=== PATIENT | female | born 1995 | race Caucasian/White ===

== ENCOUNTER 2018-03-10 19:57 | Emergency (ER) | payer OTHER ==
[2018-03-10 20:14] VITALS: BP 133/86
--- NOTE | 2018-03-10 20:29 | ER Document Report ---
ED Medical Screen (RME) - General Chief Complaint: Back Pain Stated Complaint: SHORTNESS OF BREATH, BACK PAIN, ANXIETY Time Seen by Provider: 03/10/18 20:25 Mode of Arrival: Ambulatory Information source: Patient Notes: Pt presents to the ED with concern for PE. History after of child in January 2014. Feels upper left back pain, SOB for 4 days, no recent trips, no recent surgery. Has been seen at urgent care and [facility] for possible UTI, due to questionable flank pain. History of panic attacks. Not sure if she is having panic attack or PE. No recent trauma, or injury to back. Denies f/v. - Related Data Allergies/Adverse Reactions: No Known Allergies Allergy (Unverified 03/10/18 20:04) Physical Exam - Vital signs Vitals: Temp Pulse Resp BP Pulse Ox 99.0 F 115 H 18 133/86 H 100 03/10/18 20:13 03/10/18 20:13 03/10/18 20:13 03/10/18 20:13 03/10/18 20:13 Course - Vital Signs Vital signs: Temp Pulse Resp BP Pulse Ox 99.0 F 115 H 18 133/86 H 100 03/10/18 20:13 03/10/18 20:13 03/10/18 20:13 03/10/18 20:13 03/10/18 20:13
[2018-03-10 21:11] LABS: ABSOLUTE EOSINOPHILS # (AUTO) 0.1 10^3/uL (0.0-0.6); ABSOLUTE LYMPHOCYTES (AUTO) 1.6 10^3/uL (0.5-4.7); ABSOLUTE MONOCYTES (AUTO) 0.3 10^3/uL (0.1-1.4); ABSOLUTE NEUT (AUTO) 4.8 10^3/uL (1.7-8.2); BASOPHILS % (AUTO) 0.7 % (0-2); HEMATOCRIT 47.6 % (36.0-47.0); HEMOGLOBIN 16.4 g/dL (12.0-15.5); LYMPHOCYTES % (AUTO) 22.8 % (13-45); MEAN CORPUSCULAR HEMOGLOBIN 30.6 pg (27.0-33.4); MEAN CORPUSCULAR HGB CONC 34.5 g/dL (32.0-36.0); MEAN CORPUSCULAR VOLUME 89 fl (80-97); MONOCYTES % (AUTO) 4.3 % (3-13); PLATELET COUNT 347 10^3/uL (150-450); RED BLOOD COUNT 5.36 10^6/uL (3.72-5.28); RED CELL DISTRIBUTION WIDTH 13.2 % (11.5-14.0); SEGMENTED NEUTROPHILS % (AUTO) 70.2 % (42-78); TOTAL CELLS COUNTED % (AUTO) 100 %; WHITE BLOOD COUNT 6.8 10^3/uL (4.0-10.5)
[2018-03-10 21:26] LABS: ALANINE AMINOTRANSFERASE 25 U/L (9-52); ALBUMIN 5.4 g/dL (3.5-5.0); ALKALINE PHOSPHATASE 54 U/L (38-126); ANION GAP 15 (5-19); ASPARTATE AMINO TRANSFERASE 25 U/L (14-36); BILIRUBIN,DIRECT 0.3 mg/dL (0.0-0.4); BILIRUBIN,TOTAL 0.5 mg/dL (0.2-1.3); BLOOD UREA NITROGEN 16 mg/dL (7-20); CALCIUM 10.6 mg/dL (8.4-10.2); CARBON DIOXIDE 27 mmol/L (22-30); CHLORIDE 103 mmol/L (98-107); GLUCOSE 86 mg/dL (75-110); POTASSIUM 4.5 mmol/L (3.6-5.0); SODIUM 145.2 mmol/L (137-145); TOTAL PROTEIN 9.4 g/dL (6.3-8.2)
[2018-03-10] MEDS ORDERED: DIAZEPAM 2 MG TABLET PO ONE (21:51)
--- NOTE | 2018-03-10 22:27 | RADIOLOGY REPORT (SQ) ---
EXAM DESCRIPTION: CTA CHEST COMPLETED DATE/TIME: 03/10/2018 10:17 pm REASON FOR STUDY: history of PE, feels like she has another COMPARISON: None. TECHNIQUE: CT scan of the chest performed using helical scanning technique with dynamic intravenous contrast injection. Images reviewed with lung, soft tissue and bone windows. Reconstructed coronal and sagittal MPR images reviewed. Additional 3 dimensional post-processing performed to develop Maximal Intensity Projection images (AZ P). All images stored on PACS. All CT scanners at this facility use dose modulation, iterative reconstruction, and/or weight based d osing when appropriate to reduce radiation dose to as low as reasonably achievable (ALARA). [facility]: Dose Right [facility]: CareDose [facility]: Dose Right [facility]: Teradose 4D [facility]: [email or web address] CONTRAST TYPE AND DOSE: contrast/concentration: Isovue 370.00 mg/ml; Total Contrast Delivered: 74.0 ml; Total Saline Delivered: 110.0 ml Contrast bolus optimized for the pulmonary arteries. Not diagnostic for the aorta. RENAL FUNCTION: BUN 16; creatinine 1.20 RADIATION DOSE: CT Rad equipment meets quality standard of care and radiation dose reduction techniq ues were employed. CTDIvol: 9.9 - 16.3 mGy. DLP: 694 mGy-cm. . LIMITATIONS: None. FINDINGS: LUNGS AND PLEURA: No masses, infiltrates, or pneumothorax. No pleural effusions or pleura l calcifications. AORTA AND GREAT VESSELS: No aneurysm. Contrast bolus not optimized for the aorta. HEART: No pericardial effusion. No significant coronary artery calcifications. PULMONARY ARTERIES: No emboli visualized in the main pulmonary arteries or the segmental branches. HILAR AND MEDIASTINAL STRUCTURES: No identified masses or abnormal nodes. HARDWARE: None in the chest. UPPER ABDOMEN: Left inferior pole nonobstructing nephrolith. Limited exam. THYROID AND OTHER SOFT TISSUES: No masses. No adenopathy. BONES: No acute or significant finding. 3D MIPS: Confirm above findings. OTHER: No other significant finding. IMPRESSION: NORMAL CTA OF THE CHEST. NO PULMONARY EMBOLI. COMMENT: Quality ID # [id number]: Final reports with documentation of one or more dose reduction techniques (e.g., Automated exposure control, adjustment of the mA and/or kV according to patient size, use of iterative reconstruction technique) TECHNICAL DOCUMENTATION: JOB ID: [id number] [employer]- All Rights Reserved Reading location - IP/workstation name: [email or web address]
--- NOTE | 2018-03-10 23:28 | ER Document Report ---
ED General - General Chief Complaint: Back Pain Stated Complaint: SHORTNESS OF BREATH, BACK PAIN, ANXIETY Time Seen by Provider: 03/10/18 20:25 Mode of Arrival: Ambulatory Information source: Patient Notes: 23 year old female patient presents with complaint of back pain and shortness of breath. Patient with history of anxiety/panic disorder as well as pulmonary embolism. Patient reports that over that last few days she has been doing a lot of repetitive movements and lifting of laundry baskets. Patient got worried when she developed shortness of breath and wanted to be evaluated as this feels similar to when she had a PE a few years ago. Patient denies any chest pain, cough, N/V/D or fevers. - Related Data Allergies/Adverse Reactions: No Known Allergies Allergy (Unverified 03/10/18 20:04) Past Medical History - General Information source: Patient - Social History Smoking Status: Never Smoker Frequency of alcohol use: None Drug Abuse: None Lives with: Friend Family History: Reviewed & Not Pertinent - Past Medical History Cardiac Medical History: Reports: Hx Pulmonary Embolism Psychiatric Medical History: Reports: Hx Anxiety, Other - Panic disorder Past Surgical History: Reports: Hx Thyroid Surgery - Total thyroidectomy 2016 for CA Review of Systems - Review of Systems Constitutional: No symptoms reported EENT: No symptoms reported Cardiovascular: No symptoms reported Respiratory: Short of breath. denies: Cough Gastrointestinal: No symptoms reported Genitourinary: No symptoms reported Female Genitourinary: No symptoms reported Musculoskeletal: Back pain Skin: No symptoms reported Hematologic/Lymphatic: No symptoms reported Neurological/Psychological: No symptoms reported Physical Exam - Vital signs Vitals: Temp Pulse Resp BP Pulse Ox 99.0 F 115 H 18 133/86 H 100 03/10/18 20:13 03/10/18 20:13 03/10/18 20:13 03/10/18 20:13 03/10/18 20:13 - Notes Notes: PHYSICAL EXAMINATION: GENERAL: Well-appearing, well-nourished and in no acute distress. HEAD: Atraumatic, normocephalic. EYES: Pupils equal round and reactive to light, extraocular movements intact, conjunctiva are normal. ENT: Nares patent, oropharynx clear without exudates. Moist mucous membranes. NECK: Normal range of motion, supple without lymphadenopathy LUNGS: Breath sounds clear to auscultation bilaterally and equal. No wheezes rales or rhonchi. HEART: Regular rate and rhythm without murmurs ABDOMEN: Soft, nontender, nondistended abdomen. No guarding, no rebound. No masses appreciated. Female : deferred Musculoskeletal: Normal range of motion, no pitting or edema. No cyanosis. NEUROLOGICAL: Cranial nerves grossly intact. Normal speech, normal gait. Normal sensory, motor exams PSYCH: Normal mood, normal affect. SKIN: Warm, Dry, normal turgor, no rashes or lesions noted. Course - Re-evaluation Re-evalutation: Non-toxic appearing 23 year old female presenting with complaints of shortness of breath and thoracic back pain. Patient concerned she may have a pulmonary embolism. Patient reports that she initially though she may have strained a muscle as she had been carrying laundry baskets several time up and down several flights of stairs, however she started to worry and felt that the pain was similar to when she had a PE in the past. Patient is a non-smoker, does not take any oral BCP, and has not had any recent travel. Patient is not on any anticoagulants. Patient denies ay chest pain. Initial work-up was ordered by triage provider to include CTA of the chest to R/ O pulmonary embolism. CBC and CMP are unremarkable. HCG negative. Manual heart rate when patient asked to relax is 84. Patient admits that she feels she is having an anxiety attack. Will give patient 2 mg PO valium to help ease her anxiety as well as to evaluate effectiveness for her back pain that is possibly a musculoskeletal strain. CTA is normal and shows no pulmonary embolism, patient reports relief of back pain symptoms after administration of PO valium. Patients manual heart rate remains in the 80's. Will discharge patient home on robaxin for musculoskeletal strain. Patient instructed to return if she develops worsening pain, chest pain or shortness of breath. - Vital Signs Vital signs: Temp Pulse Resp BP Pulse Ox 99.0 F 115 H 18 133/86 H 100 03/10/18 20:13 03/10/18 20:13 03/10/18 20:13 03/10/18 20:13 03/10/18 20:13 - Laboratory Result Diagrams: 03/10/18 20:52 03/10/18 20:52 Laboratory results interpreted by me: 03/10/18 03/10/18 20:52 20:52 RBC 5.36 H Hgb 16.4 H Hct 47.6 H Sodium 145.2 H Est GFR (Non-Af Amer) 56 L Calcium 10.6 H Total Protein 9.4 H Albumin 5.4 H Discharge - Discharge Clinical Impression: Back pain Qualifiers: Back pain location: thoracic back pain Chronicity: unspecified Back pain laterality: bilateral Qualified Code(s): M54.6 - Pain in thoracic spine Condition: Stable Disposition: HOME, SELF-CARE Additional Instructions: Muscle Strain You have strained a muscle -- torn the fibers within the muscle. This often occurs with strenuous exertion, or during an injury that suddenly stretches the muscle. The seriousness of a strain varies. Some strains heal within days, others cause problems for months. X-rays cannot show a muscle strain. X-rays are taken only if symptoms suggest that a fracture could be present. The usual treatment of a muscle strain is rest and ice packs. Sometimes, a sling, splint, or crutches may be necessary to rest the muscle. The muscle can be used again once pain subsides. Severe strains require a special exercise and stretching program to prevent permanent stiffness and disability. Your doctor will advise you if this will be necessary. Call the doctor immediately if pain or swelling becomes severe, or if numbness or discoloration develop. Your workup today was normal. There are no signs of any blood clots in your lungs. Please take the muscle relaxer as prescribed. Follow-up with your primary care provider if your pain does not resolve over the next 3-5 days. These return to the emergency department if you develop worsening pain, shortness of breath, chest pain or any other symptoms that is concerning to you. Prescriptions: Methocarbamol [Robaxin 750 mg Tablet] 750 mg PO ASDIR PRN #40 tablet PRN Reason:
[2018-03-10] MEDS ORDERED: ONDANSETRON ODT 4 MG TAB (6 TAB/ER DISP) PO PRN (23:52)
== END 2018-03-11 00:15 | disposition home or self-care (01) ==
LOC: ER 19:57
DX: M54.6 Pain in thoracic spine (principal); R06.02 Shortness of breath; Z86.711 Personal history of pulmonary embolism
CPT/HCPCS: 99284; 36415; 84703; 85025; 80053; 71275; J3490